=== PATIENT | male | born 1990 | race African-American/Black ===

== ENCOUNTER 2017-08-21 21:53 | Emergency (ER) | payer SELFPAY ==
[2017-08-21] MEDS ORDERED: METHYLPREDNISOLONE INJ 125 MG/2 ML SDV IV ONE (22:44)
[2017-08-21] MEDS ORDERED: NORMAL SALINE 1000 ML 1,000 ML IV PRN (22:45)
[2017-08-21] MEDS ORDERED: NORMAL SALINE 1000 ML 1,000 ML IV ONE (22:45)
[2017-08-21] MEDS ORDERED: ONDANSETRON HCL INJ/PF 4 MG/2 ML SDV IV ONE (22:46)
--- NOTE | 2017-08-21 22:47 | ER Document Report ---
ED General - General Chief Complaint: Nausea/Vomiting/Diarrhea Stated Complaint: VOMITING Time Seen by Provider: 08/21/17 22:40 Mode of Arrival: Ambulatory Information source: Patient Notes: 27 years old male presents today with fever chills sore throat nausea and vomiting 3 since this morning. And having chills on and off. Denies any headache neck pain neck stiffness. Denies any chest pain cough shortness of breath. Denies any abdominal pain dysuria frequency urgency. TRAVEL OUTSIDE OF THE [place] IN LAST 30 DAYS: No - Related Data Allergies/Adverse Reactions: No Known Allergies Allergy (Verified 08/21/17 21:55) Past Medical History - Social History Smoking Status: Smoker,Current Status Unk Family History: Reviewed & Not Pertinent - Immunizations Hx Diphtheria, Pertussis, Tetanus Vaccination: Yes Review of Systems - Review of Systems Notes: REVIEW OF SYSTEMS: CONSTITUTIONAL : As per history of complain EENT: Denies eye, ear, throat, or mouth pain or symptoms. Denies nasal or sinus congestion or discharge. Denies throat, tongue, or mouth swelling or difficulty swallowing. CARDIOVASCULAR: Denies chest pain. Denies palpitations or racing or irregular heart beat. Denies ankle edema. RESPIRATORY: Denies cough, cold, or chest congestion. Denies shortness of breath, difficulty breathing, or wheezing. GASTROINTESTINAL: Denies abdominal pain or distention. Denies blood in vomitus, stools, or per rectum. Denies black, tarry stools. Denies constipation. GENITOURINARY: Denies difficulty urinating, painful urination, burning, frequency, blood in urine, or discharge. MUSCULOSKELETAL: Denies back or neck pain or stiffness. Denies joint pain or swelling. SKIN: Denies rash, lesions or sores. HEMATOLOGIC : Denies easy bruising or bleeding. LYMPHATIC: Denies swollen, enlarged glands. NEUROLOGICAL: Denies confusion or altered mental status. Denies passing out or loss of consciousness. Denies dizziness or lightheadedness. Denies headache. Denies weakness or paralysis or loss of use of either side. Denies problems with gait or speech. Denies sensory loss, numbness, or tingling. Denies seizures. PSYCHIATRIC: Denies anxiety or stress. Denies depression, suicidal ideation, or homicidal ideation. ALL OTHER SYSTEMS REVIEWED AND NEGATIVE. Dictation was performed using [employer] recognition software PHYSICAL EXAMINATION: GENERAL: Well-appearing, well-nourished and in no acute distress. HEAD: Atraumatic, normocephalic. EYES: Pupils equal round and reactive to light, extraocular movements intact, sclera anicteric, conjunctiva are normal. ENT: Nares patent, oropharynx clear without exudates. Moist mucous membranes. NECK: Normal range of motion, supple without lymphadenopathy LUNGS: Breath sounds clear to auscultation bilaterally and equal. No wheezes rales or rhonchi. HEART: Regular rate and rhythm without murmurs ABDOMEN: Soft, nontender, nondistended abdomen. No guarding, no rebound. No masses appreciated. Musculoskeletal: Normal range of motion, no pitting or edema. No cyanosis. NEUROLOGICAL: Cranial nerves grossly intact. Normal speech, normal gait. Normal sensory, motor exams PSYCH: Normal mood, normal affect. SKIN: Warm, Dry, normal turgor, no rashes or lesions noted. Physical Exam - Vital signs Vitals: Temp Pulse Resp BP Pulse Ox 97.6 F 75 18 124/107 H 100 08/21/17 22:06 08/21/17 22:06 08/21/17 22:06 08/21/17 22:06 08/21/17 22:06 Course - Re-evaluation Re-evalutation: 08/22/17 01:48 CT report came back normal as well as chest x-ray x-ray. Most of the blood work came back normal except white count. This was explained to the parents and he is feeling well currently discharged home with a diagnosis of viral syndrome - Vital Signs Vital signs: Temp Pulse Resp BP Pulse Ox 98.0 F 77 18 126/55 H 99 08/22/17 02:10 08/22/17 02:10 08/22/17 02:10 08/22/17 02:10 08/22/17 02:10 - Laboratory Result Diagrams: 08/21/17 23:00 08/22/17 00:22 Laboratory results interpreted by me: 08/21/17 08/22/17 23:00 00:22 WBC 13.2 H Absolute Neutrophils 10.0 H Sodium 146.8 H Chloride 108 H Discharge - Discharge Clinical Impression: Viral syndrome, Dehydration Disposition: HOME, SELF-CARE Instructions: Fever ([facility]) Prescriptions: Promethazine HCl 25 mg PO TID PRN #30 tablet PRN Reason:
[2017-08-21 23:19] LABS: ABSOLUTE BASOPHILS # (AUTO) 0.1 10^3/uL (0.0-0.2); ABSOLUTE EOSINOPHILS # (AUTO) 0.4 10^3/uL (0.0-0.6); ABSOLUTE LYMPHOCYTES (AUTO) 1.8 10^3/uL (0.5-4.7); ABSOLUTE MONOCYTES (AUTO) 0.9 10^3/uL (0.1-1.4); BASOPHILS % (AUTO) 1.1 % (0-2); EOSINOPHILS % (AUTO) 2.8 % (0-6); HEMATOCRIT 46.5 % (37.9-51.0); HEMOGLOBIN 16.2 g/dL (13.5-17.0); HGB HCT DIFFERENCE 2.1; LYMPHOCYTES % (AUTO) 13.9 % (13-45); MEAN CORPUSCULAR HEMOGLOBIN 29.3 pg (27.0-33.4); MEAN CORPUSCULAR HGB CONC 34.8 g/dL (32.0-36.0); MEAN CORPUSCULAR VOLUME 84 fl (80-97); MONOCYTES % (AUTO) 6.5 % (3-13); RED BLOOD COUNT 5.53 10^6/uL (4.35-5.55); RED CELL DISTRIBUTION WIDTH 12.7 % (11.5-14.0); SEGMENTED NEUTROPHILS % (AUTO) 75.7 % (42-78); WHITE BLOOD COUNT 13.2 10^3/uL (4.0-10.5)
--- NOTE | 2017-08-22 00:24 | RADIOLOGY REPORT (SQ) ---
EXAM DESCRIPTION: CHEST SINGLE VIEW CLINICAL HISTORY: 27 years, Male, Shortness of breath COMPARISON: None. LIMITATIONS: None. FINDINGS: 0.6 cm likely calcified granuloma the right lower lung, otherwise clear parenchyma, normal cardiac silhouette, and intact bony thorax. IMPRESSION: No acute cardiopulmonary findings. 2011 [employer]- All Rights Reserved
[2017-08-22 00:51] LABS: ALANINE AMINOTRANSFERASE 41 U/L (21-72); ALBUMIN 4.5 g/dL (3.5-5.0); ALKALINE PHOSPHATASE 96 U/L (38-126); ANION GAP 15 (5-19); ASPARTATE AMINO TRANSFERASE 31 U/L (17-59); BILIRUBIN,DIRECT 0.2 mg/dL (0.0-0.4); BLOOD UREA NITROGEN 16 mg/dL (7-20); CALCIUM 9.8 mg/dL (8.4-10.2); CARBON DIOXIDE 24 mmol/L (22-30); CHLORIDE 108 mmol/L (98-107); CREATININE RESULT 1.14 mg/dL (0.52-1.25); GLUCOSE 82 mg/dL (75-110); POTASSIUM 4.6 mmol/L (3.6-5.0); SODIUM 146.8 mmol/L (137-145); TOTAL PROTEIN 7.7 g/dL (6.3-8.2)
--- NOTE | 2017-08-22 01:39 | RADIOLOGY REPORT (SQ) ---
EXAM DESCRIPTION: CT ABD/PELVIS WITH IV ONLY CLINICAL HISTORY: 27 years Male, Abdominal pain COMPARISON: None. TECHNIQUE: 83 mL IV contrast, coronal and sagittal reformat. This exam was performed according to our departmental dose-optimization program, which includes automated exposure control, adjustment of the mA and/or kV according to patient size and/or use of iterative reconstruction technique. FINDINGS: No acute findings. No significant free fluid. Normal CT appearance of the appendix and gallbladder. No bowel or renal obstruction. Inferior chest, liver, spleen, adrenals, pancreas, renal system, gastrointestinal tract, vasculature, lymphatics, pelvic organs, and musculoskeleton appear otherwise unremarkable. IMPRESSION: Normal contrast CT of the abdomen and pelvis.
[2017-08-22 02:20] VITALS: BP 126/55
== END 2017-08-22 02:15 | disposition home or self-care (01) ==
LOC: ER 21:53
DX: B34.9 Viral infection, unspecified (principal); E86.0 Dehydration; R11.2 Nausea with vomiting, unspecified; R19.7 Diarrhea, unspecified; R50.9 Fever, unspecified; F17.200 Nicotine dependence, unspecified, uncomplicated
CPT/HCPCS: 99284; 96361; 96374; 36415; 87070; 87880; 85025; 80053; 87804; 71010; 74177; J2405; J7030 ×2

== ENCOUNTER 2018-03-08 17:25 | Emergency (ER) | payer SELFPAY ==
[2018-03-08] MEDS ORDERED: METOCLOPRAMIDE HCL INJ/PF 10 MG/2 ML SDV IV ONE (18:16)
[2018-03-08] MEDS ORDERED: NORMAL SALINE 1000 ML 1,000 ML IV ONE (18:16)
[2018-03-08] MEDS ORDERED: DIPHENHYDRAMINE HCL 50 MG/ML VIAL IV ONE (18:16)
--- NOTE | 2018-03-08 18:17 | ER Document Report ---
ED Medical Screen (RME) - General Chief Complaint: Dizziness Stated Complaint: DIZZINESS/HEADACHE Time Seen by Provider: 03/08/18 18:08 Notes: Patient is a 27-year-old male who presents with worsening headaches over the past month now some presyncopal episodes. He also feels his heart racing during these times. Only having a posterior headache at this time. PE: NAD. 5/5 strength in all 4 extremities. Sensation intact. PERRL. RRR. I have greeted and performed a rapid initial assessment of this patient. A comprehensive ED assessment and evaluation of the patient, analysis of test results and completion of the medical decision making process will be conducted by additional ED providers. TRAVEL OUTSIDE OF THE [place] IN LAST 30 DAYS: No - Related Data Allergies/Adverse Reactions: No Known Allergies Allergy (Verified 03/08/18 18:08) Past Medical History - Social History Chew tobacco use (# tins/day): No Frequency of alcohol use: None Drug Abuse: None Renal/ Medical History: Denies: Hx Peritoneal Dialysis - Immunizations Hx Diphtheria, Pertussis, Tetanus Vaccination: Yes Physical Exam - Vital signs Vitals: Temp Pulse Resp BP Pulse Ox 97.9 F 64 18 141/80 H 98 03/08/18 17:42 03/08/18 17:42 03/08/18 17:42 03/08/18 17:42 03/08/18 17:42 Course - Vital Signs Vital signs: Temp Pulse Resp BP Pulse Ox 97.9 F 64 18 141/80 H 98 03/08/18 17:42 03/08/18 17:42 03/08/18 17:42 03/08/18 17:42 03/08/18 17:42
--- NOTE | 2018-03-08 18:34 | RADIOLOGY REPORT (SQ) ---
EXAM DESCRIPTION: CT HEAD WITHOUT COMPLETED DATE/TIME: 03/08/2018 6:22 pm REASON FOR STUDY: new headache COMPARISON: None. TECHNIQUE: Axial images acquired through the brain without intravenous contrast. Images reviewed wi th bone, brain and subdural windows. Additional sagittal and coronal reconstructions were generated. Images stored on PACS. All CT scanners at this facility use dose modulation, iterative reconstruction, and/or weight based d osing when appropriate to reduce radiation dose to as low as reasonably achievable (ALARA). [facility]: Dose Right [facility]: CareDose [facility]: Dose Right [facility]: Teradose 4D [facility]: [employer] RADIATION DOSE: CT Rad equipment meets quality standard of care and radiation dose reduction techniq ues were employed. CTDIvol: 53.2 mGy. DLP: 991 mGy-cm. mGy. LIMITATIONS: None. FINDINGS: VENTRICLES: Normal size and contour. CEREBRUM: No masses. No hemorrhage. No midline shift. No evidence for acute infarction. Normal gra y/white matter differentiation. No areas of low density in the white matter. CEREBELLUM: No masses. No hemorrhage. No alteration of density. No evidence for acute infarction. EXTRAAXIAL SPACES: No fluid collections. No masses. ORBITS AND GLOBE: No intra- or extraconal masses. Normal contour of globe without masses. CALVARIUM: No fracture. PARANASAL SINUSES: Small mucosal polyp or retention cyst is identified in the left maxillary antra SOFT TISSUES: No mass or hematoma. OTHER: No other significant finding. IMPRESSION: NORMAL BRAIN CT WITHOUT CONTRAST. EVIDENCE OF ACUTE STROKE: NO. COMMENT: Quality ID # [id number]: Final reports with documentation of one or more dose reduction techniques (e.g., Automated exposure control, adjustment of the mA and/or kV according to patient size, use of iterative reconstruction technique) TECHNICAL DOCUMENTATION: JOB ID: [id number] [employer]- All Rights Reserved Reading location - IP/workstation name: [email or web address]
[2018-03-08 20:08] LABS: ABSOLUTE BASOPHILS # (AUTO) 0.1 10^3/uL (0.0-0.2); ABSOLUTE EOSINOPHILS # (AUTO) 0.7 10^3/uL (0.0-0.6); ABSOLUTE LYMPHOCYTES (AUTO) 2.5 10^3/uL (0.5-4.7); ABSOLUTE MONOCYTES (AUTO) 0.5 10^3/uL (0.1-1.4); ABSOLUTE NEUT (AUTO) 3.4 10^3/uL (1.7-8.2); EOSINOPHILS % (AUTO) 9.1 % (0-6); LYMPHOCYTES % (AUTO) 35.1 % (13-45); MEAN CORPUSCULAR HGB CONC 34.8 g/dL (32.0-36.0); MEAN CORPUSCULAR VOLUME 86 fl (80-97); PLATELET COUNT 222 10^3/uL (150-450); SEGMENTED NEUTROPHILS % (AUTO) 46.8 % (42-78); TOTAL CELLS COUNTED % (AUTO) 100 %; WHITE BLOOD COUNT 7.2 10^3/uL (4.0-10.5)
[2018-03-08 20:28] LABS: ALANINE AMINOTRANSFERASE 22 U/L (21-72); ALBUMIN 4.6 g/dL (3.5-5.0); ALKALINE PHOSPHATASE 74 U/L (38-126); ANION GAP 13 (5-19); ASPARTATE AMINO TRANSFERASE 32 U/L (17-59); BILIRUBIN,DIRECT 0.4 mg/dL (0.0-0.4); BILIRUBIN,TOTAL 0.8 mg/dL (0.2-1.3); BLOOD UREA NITROGEN 15 mg/dL (7-20); CARBON DIOXIDE 28 mmol/L (22-30); CHLORIDE 102 mmol/L (98-107); GLUCOSE 81 mg/dL (75-110); SODIUM 142.7 mmol/L (137-145); TOTAL PROTEIN 8.5 g/dL (6.3-8.2)
--- NOTE | 2018-03-08 21:36 | EKG REPORT ---
SEVERITY:- ABNORMAL ECG - SINUS RHYTHM PROBABLE LEFT VENTRICULAR HYPERTROPHY ST ELEVATION SUGGESTS PERICARDITIS VERSUS EARLY REPOLARISATION CHANGES.cORRELATE CLINICALLY : Confirmed by: Bea Dias MD 08-Mar-2018 21:36:24
--- NOTE | 2018-03-08 23:45 | ER Document Report ---
ED General - General Chief Complaint: Dizziness Stated Complaint: DIZZINESS/HEADACHE Time Seen by Provider: 03/08/18 18:08 TRAVEL OUTSIDE OF THE [place] IN LAST 30 DAYS: No - HPI Patient complains to provider of: Headaches dizziness chest pain Notes: Patient coming in for evaluation of headaches dizziness chest pain. States intermittent for the last few weeks or more severe today. Patient states headache global patient states dizziness upon moving patient states he does drink plenty of fluids however he is under a lot of stress or so a lot does have multiple family commitments patient also complains about chest pain stabbing substernal epigastric. Patient denies any nausea vomiting fevers or chills. Patient resting currently in no obvious distress upon my evaluation. - Related Data Allergies/Adverse Reactions: No Known Allergies Allergy (Verified 03/08/18 18:08) Past Medical History - Social History Smoking Status: Never Smoker Chew tobacco use (# tins/day): No Frequency of alcohol use: None Drug Abuse: None Family History: Reviewed & Not Pertinent Patient has suicidal ideation: No Patient has homicidal ideation: No Renal/ Medical History: Denies: Hx Peritoneal Dialysis - Immunizations Hx Diphtheria, Pertussis, Tetanus Vaccination: Yes Review of Systems - Review of Systems Constitutional: Other - Dizziness headaches EENT: No symptoms reported Cardiovascular: Chest pain Respiratory: No symptoms reported Gastrointestinal: No symptoms reported Genitourinary: No symptoms reported Male Genitourinary: No symptoms reported Musculoskeletal: No symptoms reported Skin: No symptoms reported Hematologic/Lymphatic: No symptoms reported Neurological/Psychological: No symptoms reported -: Yes All other systems reviewed and negative Physical Exam - Vital signs Vitals: Temp Pulse Resp BP Pulse Ox 97.9 F 64 18 141/80 H 98 03/08/18 17:42 03/08/18 17:42 03/08/18 17:42 03/08/18 17:42 03/08/18 17:42 Interpretation: Normal - General General appearance: Appears well, Alert - HEENT Head: Normocephalic, Atraumatic Eyes: Normal Pupils: PERRL - Respiratory Respiratory status: No respiratory distress Chest status: Nontender Breath sounds: Normal Chest palpation: Normal - Cardiovascular Rhythm: Regular Heart sounds: Normal auscultation Murmur: No - Abdominal Inspection: Normal Distension: No distension Bowel sounds: Normal Tenderness: Nontender Organomegaly: No organomegaly - Back Back: Normal, Nontender - Extremities General upper extremity: Normal inspection, Nontender, Normal color, Normal ROM , Normal temperature General lower extremity: Normal inspection, Nontender, Normal color, Normal ROM , Normal temperature, Normal weight bearing. No: Tristan's sign - Neurological Neuro grossly intact: Yes Cognition: Normal Orientation: AAOx4 [place] Coma Scale Eye Opening: Spontaneous Ritu Coma Scale Verbal: Oriented Ritu Coma Scale Motor: Obeys Commands [place] Coma Scale Total: 15 Speech: Normal Motor strength normal: LUE, RUE, LLE, RLE Sensory: Normal - Psychological Associated symptoms: Normal affect, Normal mood - Skin Skin Temperature: Warm Skin Moisture: Dry Skin Color: Normal Course - Re-evaluation Re-evalutation: 03/09/18 00:55 The patient has atypical chest pain as the patient's chest pain is not suggestive of pulmonary embolus, cardiac ischemia, aortic dissection, or other serious etiology. Given the extremely low risk of these diagnoses further testing and evaluation for these possibilities does not appear to be indicated at this time. The patient has been instructed to return if the symptoms worsen or change in any way. EKG does show some slight signs of possible pericarditis however troponin and ESR negative. More likely is early repolarization. Patient resting comfortably after his headache cocktail. CT of the scan and laboratory results were reviewed with the patient. Patient will be discharged home - Vital Signs Vital signs: Temp Pulse Resp BP Pulse Ox 97.9 F 64 13 126/71 H 98 03/08/18 17:42 03/08/18 17:42 03/09/18 00:01 03/09/18 00:00 03/09/18 00:01 - Laboratory Result Diagrams: 03/08/18 19:58 03/08/18 19:58 Laboratory results interpreted by me: 03/08/18 03/08/18 19:58 19:58 Eosinophils % 9.1 H Absolute Eosinophils 0.7 H Total Protein 8.5 H Discharge - Discharge Clinical Impression: Dehydration, Chest pain of uncertain etiology Headache Qualifiers: Headache type: unspecified Headache chronicity pattern: unspecified pattern Intractability: not intractable Qualified Code(s): R51 - Headache Condition: Good Disposition: HOME, SELF-CARE Instructions: Chest Wall Pain ([facility]), Chest Pain of Unclear Cause ([facility]), Dehydration ([facility]), Headache ([facility]) Additional Instructions: Laboratory studies today did not show any signs of cardiac abnormality no signs of cardiac ischemia cardiac arrhythmia. Your CT of your head does not show any intracranial abnormality. Will likely your symptoms can be due to fatigue or dehydration. Will recommend drinking plenty of water. He can also take the medication as prescribed for your headache Compazine and Zofran together. We also recommend taking Tylenol Motrin for your pain. Return to ER if symptoms worsen. Prescriptions: Ondansetron HCl [Zofran 4 mg Tablet] 1 - 2 tab PO Q6 #30 tablet Prochlorperazine Maleate [Compazine] 5 mg PO Q6 #30 tablet Forms: Return to Work
[2018-03-09 00:25] VITALS: BP 126/71
== END 2018-03-09 00:29 | disposition home or self-care (01) ==
LOC: ER 17:25
DX: E86.0 Dehydration (principal); R42 Dizziness and giddiness; R51 Headache; R07.9 Chest pain, unspecified
CPT/HCPCS: 93005; 99284; 36415; 83690; 85025; 85652; 80053; 84484; 70450; 93010; J1200; J2765; J7030

== ENCOUNTER 2018-05-04 18:29 | Emergency (ER) | payer SELFPAY ==
--- NOTE | 2018-05-04 20:49 | RADIOLOGY REPORT (SQ) ---
EXAM DESCRIPTION: CHEST 2 VIEWS COMPLETED DATE/TIME: 05/04/2018 8:33 pm REASON FOR STUDY: Swollen lymph nodes COMPARISON: None. EXAM PARAMETERS: NUMBER OF VIEWS: two views TECHNIQUE: Digital Frontal and Lateral radiographic views of the chest acquired. RADIATION DOSE: NA LIMITATIONS: none FINDINGS: LUNGS AND PLEURA: No opacities, masses or pneumothorax. No pleural effusion. MEDIASTINUM AND HILAR STRUCTURES: No masses or contour abnormalities. HEART AND VASCULAR STRUCTURES: Heart normal size. No evidence for failure. BONES: No acute findings. HARDWARE: None in the chest. OTHER: No other significant finding. IMPRESSION: NO ACUTE RADIOGRAPHIC FINDING IN THE CHEST. TECHNICAL DOCUMENTATION: JOB ID: [id number] [employer]- All Rights Reserved Reading location - IP/workstation name: [email or web address]
--- NOTE | 2018-05-04 22:13 | ER Document Report ---
ED General - General Chief Complaint: Neck Swelling Stated Complaint: POSSIBLE ABSCESS, NECK PAIN Time Seen by Provider: 05/04/18 21:08 TRAVEL OUTSIDE OF THE [place] IN LAST 30 DAYS: No - HPI Notes: 28-year-old male presents with 3 areas of swelling on his left neck for the past 2 months. He believes it has gotten larger and is now causing shooting pains into his head causing headaches. He denies any fevers, chills, sore throat, difficulty swallowing, drooling. He does not feel ill. He has had no injuries. Initially thought it was due to sleeping wrong on the couch with his child. Denies any focal numbness or weakness. - Related Data Allergies/Adverse Reactions: No Known Allergies Allergy (Verified 05/04/18 18:31) Past Medical History - Social History Smoking Status: Never Smoker Frequency of alcohol use: None Drug Abuse: None Family History: Reviewed & Not Pertinent Patient has suicidal ideation: No Patient has homicidal ideation: No Renal/ Medical History: Denies: Hx Peritoneal Dialysis - Immunizations Hx Diphtheria, Pertussis, Tetanus Vaccination: Yes Review of Systems - Review of Systems Notes: Constitutional: Negative for fever. HENT: Negative for sore throat. Eyes: Negative for visual changes. Cardiovascular: Negative for chest pain. Respiratory: Negative for shortness of breath. Gastrointestinal: Negative for abdominal pain, vomiting or diarrhea. Genitourinary: Negative for dysuria. Musculoskeletal: Negative for back pain. Skin: Negative for rash. Neurological: Negative for headaches, weakness or numbness. 10 point ROS negative except as marked above and in HPI. Physical Exam - Vital signs Vitals: Resp Pulse Ox 12 100 05/04/18 21:09 05/04/18 21:09 - Notes Notes: PHYSICAL EXAMINATION: GENERAL: Well-appearing, well-nourished and in no acute distress. HEAD: Atraumatic, normocephalic. Patient has approximate 2 cm area of tenderness, mild swelling, and excoriated lesions to left lower scalp hairline. He states he remembers getting a little bit of pus out of this region a few days ago. He does not know where the lesion originated. Denies any insect bites. There is no fluctuance. EYES: Pupils equal round and reactive to light, extraocular movements intact, conjunctiva are normal. ENT: nares patent, oropharynx clear without exudates. Moist mucous membranes. NECK: Normal range of motion, supple. No neck asymmetry. No obvious swelling. No warmth, erythema, induration, crepitus, fluctuance. He has 4 tiny pea- sized palpable tender lymph nodes to his left posterior cervical chain. LUNGS: Breath sounds clear to auscultation bilaterally and equal. No wheezes rales or rhonchi. HEART: Regular rate and rhythm, no chest wall tenderness ABDOMEN: Soft, nontender, normoactive bowel sounds. No guarding, no rebound. No masses appreciated. EXTREMITIES: Normal range of motion, no pitting or edema. No cyanosis. NEUROLOGICAL: Cranial nerves grossly intact. Normal speech, normal gait. Normal sensory and motor exams. PSYCH: Normal mood, normal affect. SKIN: Warm, Dry, normal turgor, no rashes or lesions noted. Course - Re-evaluation Re-evalutation: 05/04/18 22:12 Exam consistent with very mild tender adenopathy. Labs ordered in triage. 05/04/18 23:37 Area of folliculitis found in left scalp immediately prior to discharge is likely causing the left-sided tender adenopathy. Labs unremarkable. Will treat with Bactrim. At this time will discharge with return precautions and follow-up recommendations. Verbal discharge instructions given a the bedside and opportunity for questions given. Medication warnings reviewed. Patient is in agreement with this plan and has verbalized understanding of return precautions and the need for primary care follow-up in the next 24-72 hours. Voice dictation software was used. Chart was reviewed, but errors may exist. - Vital Signs Vital signs: Temp Pulse Resp BP Pulse Ox 15 135/96 H 100 05/04/18 23:01 05/04/18 23:01 05/04/18 23:01 - Laboratory Result Diagrams: 05/04/18 21:35 05/04/18 21:35 Laboratory results interpreted by me: 05/04/18 21:35 Seg Neutrophils % 36.9 L Eosinophils % 8.2 H Discharge - Discharge Clinical Impression: Folliculitis, Cervical adenopathy Condition: Stable Disposition: HOME, SELF-CARE Instructions: Folliculitis ([facility]), Cervical Lymphadenitis ([facility]) Additional Instructions: Take all antibiotic. Return for any worsening or concerning symptoms. Take naproxen as needed for pain and swelling. Prescriptions: Naproxen 500 mg PO Q12 #20 tablet Sulfamethoxazole/Trimethoprim [Bactrim Ds Tablet] 1 each PO BID 7 Days tablet Forms: Elevated Blood Pressure Referrals: DONELL LOPEZ MD [ACTIVE STAFF] - Follow up in 1 week
[2018-05-04 22:29] LABS: ABSOLUTE EOSINOPHILS # (AUTO) 0.5 10^3/uL (0.0-0.6); ABSOLUTE LYMPHOCYTES (AUTO) 2.5 10^3/uL (0.5-4.7); ABSOLUTE MONOCYTES (AUTO) 0.6 10^3/uL (0.1-1.4); ABSOLUTE NEUT (AUTO) 2.1 10^3/uL (1.7-8.2); BASOPHILS % (AUTO) 0.7 % (0-2); EOSINOPHILS % (AUTO) 8.2 % (0-6); HEMATOCRIT 43.5 % (37.9-51.0); HEMOGLOBIN 15.3 g/dL (13.5-17.0); LYMPHOCYTES % (AUTO) 43.6 % (13-45); MEAN CORPUSCULAR HEMOGLOBIN 30.1 pg (27.0-33.4); MEAN CORPUSCULAR HGB CONC 35.2 g/dL (32.0-36.0); MEAN CORPUSCULAR VOLUME 86 fl (80-97); MONOCYTES % (AUTO) 10.6 % (3-13); PLATELET COUNT 207 10^3/uL (150-450); RED BLOOD COUNT 5.09 10^6/uL (4.35-5.55); RED CELL DISTRIBUTION WIDTH 12.9 % (11.5-14.0); SEGMENTED NEUTROPHILS % (AUTO) 36.9 % (42-78); TOTAL CELLS COUNTED % (AUTO) 100 %; WHITE BLOOD COUNT 5.7 10^3/uL (4.0-10.5)
[2018-05-04 22:42] LABS: ANION GAP 11 (5-19); BLOOD UREA NITROGEN 13 mg/dL (7-20); CARBON DIOXIDE 26 mmol/L (22-30); CHLORIDE 103 mmol/L (98-107); GLUCOSE 77 mg/dL (75-110); POTASSIUM 4.6 mmol/L (3.6-5.0); SODIUM 139.8 mmol/L (137-145)
[2018-05-04 23:57] VITALS: BP 136/84
== END 2018-05-04 23:58 | disposition home or self-care (01) ==
LOC: ER 18:29
DX: R59.0 Localized enlarged lymph nodes (principal); L73.8 Other specified follicular disorders; R51 Headache
CPT/HCPCS: 36415; 71046; 80048; 85025; 86060; 86308; 87070; 87880; 99284

== ENCOUNTER 2018-11-06 19:46 | Emergency (ER) | payer BC ==
[2018-11-07 01:41] LABS: ABSOLUTE EOSINOPHILS # (AUTO) 0.2 10^3/uL (0.0-0.6); ABSOLUTE LYMPHOCYTES (AUTO) 1.1 10^3/uL (0.5-4.7); ABSOLUTE MONOCYTES (AUTO) 0.7 10^3/uL (0.1-1.4); ABSOLUTE NEUT (AUTO) 3.3 10^3/uL (1.7-8.2); BASOPHILS % (AUTO) 0.6 % (0-2); HEMATOCRIT 40.8 % (37.9-51.0); HEMOGLOBIN 14.4 g/dL (13.5-17.0); LYMPHOCYTES % (AUTO) 21.3 % (13-45); MEAN CORPUSCULAR HEMOGLOBIN 29.8 pg (27.0-33.4); MEAN CORPUSCULAR HGB CONC 35.4 g/dL (32.0-36.0); MEAN CORPUSCULAR VOLUME 84 fl (80-97); MONOCYTES % (AUTO) 12.6 % (3-13); PLATELET COUNT 197 10^3/uL (150-450); RED BLOOD COUNT 4.85 10^6/uL (4.35-5.55); SEGMENTED NEUTROPHILS % (AUTO) 62.5 % (42-78); TOTAL CELLS COUNTED % (AUTO) 100 %; WHITE BLOOD COUNT 5.4 10^3/uL (4.0-10.5)
[2018-11-07] MEDS ORDERED: PROCHLORPERAZINE EDISYLATE INJ 10 MG/2 ML VIAL IV ONE (01:44)
[2018-11-07] MEDS ORDERED: KETOROLAC TROMETHAMINE INJ/PF 30 MG/1 ML SDV IV ONE (01:45)
[2018-11-07] MEDS ORDERED: DIPHENHYDRAMINE HCL 50 MG/ML VIAL IV ONE (01:45)
[2018-11-07 01:59] LABS: ALANINE AMINOTRANSFERASE 25 U/L (21-72); ALBUMIN 4.4 g/dL (3.5-5.0); ALKALINE PHOSPHATASE 89 U/L (38-126); ANION GAP 8 (5-19); ASPARTATE AMINO TRANSFERASE 30 U/L (17-59); BILIRUBIN,DIRECT 0.1 mg/dL (0.0-0.4); BILIRUBIN,TOTAL 1.9 mg/dL (0.2-1.3); BLOOD UREA NITROGEN 15 mg/dL (7-20); CALCIUM 9.5 mg/dL (8.4-10.2); CARBON DIOXIDE 28 mmol/L (22-30); CHLORIDE 99 mmol/L (98-107); GLUCOSE 89 mg/dL (75-110); LIPASE 83.9 U/L (23-300); POTASSIUM 3.5 mmol/L (3.6-5.0); SODIUM 135.2 mmol/L (137-145); TOTAL PROTEIN 8.2 g/dL (6.3-8.2)
[2018-11-07] MEDS ORDERED: RINGERS SOLUTION,LACTATED 1,000 ML IV ONE (02:21)
--- NOTE | 2018-11-07 03:28 | ER Document Report ---
ED General - General Chief Complaint: Abdominal Pain Stated Complaint: NAUSEA,VOMITING,HEADACHE Time Seen by Provider: 11/07/18 00:00 Notes: Patient is a 28-year-old male suffers from migraines presents to the emergency department for generalized headache, vomits x6 and subjective fever. Patient's denying any diarrhea, dysuria, abdominal pain. Patient states he does have a history of migraines but is not being treated with any medications. Patient is denying any nuchal rigidity or neck pain. Past medical history: Migraines Medications: None Allergies: None TRAVEL OUTSIDE OF THE [place] IN LAST 30 DAYS: No - Related Data Allergies/Adverse Reactions: No Known Allergies Allergy (Verified 05/04/18 18:31) Past Medical History - General Information source: Patient - Social History Smoking Status: Never Smoker Chew tobacco use (# tins/day): No Frequency of alcohol use: None Drug Abuse: None Family History: Reviewed & Not Pertinent Patient has suicidal ideation: No Patient has homicidal ideation: No Renal/ Medical History: Denies: Hx Peritoneal Dialysis - Immunizations Hx Diphtheria, Pertussis, Tetanus Vaccination: Yes Review of Systems - Review of Systems Constitutional: See HPI EENT: No symptoms reported Cardiovascular: No symptoms reported Respiratory: No symptoms reported Gastrointestinal: See HPI Genitourinary: No symptoms reported Male Genitourinary: No symptoms reported Musculoskeletal: No symptoms reported Skin: No symptoms reported - Doing Hematologic/Lymphatic: No symptoms reported Neurological/Psychological: No symptoms reported - Get off my back Physical Exam - Vital signs Vitals: Temp Pulse Resp BP Pulse Ox 99.0 F 80 14 145/80 H 98 11/06/18 19:59 11/06/18 19:59 11/06/18 19:59 11/06/18 19:59 11/06/18 19:59 - Notes Notes: GENERAL: Alert, interacts well. No acute distress. HEAD: Normocephalic, atraumatic. EYES: Pupils equal, round, and reactive to light. Extraocular movements intact. No photophobia noted ENT: Oral mucosa moist, tongue midline. NECK: Full range of motion. Supple. Trachea midline. LUNGS: Clear to auscultation bilaterally, no wheezes, rales, or rhonchi. No respiratory distress. HEART: Regular rate and rhythm. No murmur ABDOMEN: Soft, Non-distended. Bowel sounds present in all 4 quadrants. No McBurney's point tenderness, no Du sign noted. Minor pain in the left upper quadrant noted upon deep palpation. EXTREMITIES: Moves all 4 extremities spontaneously. No edema, normal radial and dorsalis pedis pulses bilaterally. No cyanosis. BACK: no cervical, thoracic, lumbar midline tenderness. No saddle anesthesia, normal distal neurovascular exam. NEUROLOGICAL: Alert and oriented x3. Normal speech. cranial nerves II through XII grossly intact PSYCH: Normal affect, normal mood. SKIN: Warm, dry, normal turgor. No rashes or lesions noted. Course - Re-evaluation Re-evalutation: Patient's labs show no signs of leukocytosis, no signs of anemia, Patient's sodium was noted to be 135.2 with a potassium of 3.5. Patient was treated in the emergency department for his generalized migraine with fluid resuscitation. Patient states he feels a lot better and upon my reassessment patient was sleeping in no apparent distress. Patient has been afebrile the entire visit to the emergency department, vitals stable, stable for discharge. - Vital Signs Vital signs: Temp Pulse Resp BP Pulse Ox 99.0 F 80 14 145/80 H 98 11/06/18 19:59 11/06/18 19:59 11/06/18 19:59 11/06/18 19:59 11/06/18 19:59 - Laboratory Result Diagrams: 11/07/18 01:26 11/07/18 01:26 Laboratory results interpreted by me: 11/07/18 01:26 Sodium 135.2 L Potassium 3.5 L Total Bilirubin 1.9 H Discharge - Discharge Clinical Impression: Migraine Qualifiers: Migraine type: unspecified Status migrainosus presence: without status migr ainosus Intractability: not intractable Qualified Code(s): G43.909 - Migraine, unspecified, not intractable, without status migrainosus Condition: Stable Disposition: HOME, SELF-CARE Instructions: Migraine Headache ([facility]) Additional Instructions: You have been seen and treated in the emergency department for a migraine headache. Please make sure he stay well-hydrated and follow-up with your primary care provider in the next 24-48 hours. Please also return to the emergency room should you have any other concerning symptoms. Prescriptions: Ondansetron [Zofran Odt 4 mg Tablet] 1 - 2 tab PO Q6 #15 tab.rapdis Forms: Return to Work
[2018-11-07 04:01] VITALS: BP 150/78
== END 2018-11-07 03:40 | disposition home or self-care (01) ==
LOC: ER 19:46
DX: G43.909 Migraine, unspecified, not intractable, without status migrainosus (principal); R50.9 Fever, unspecified; R11.10 Vomiting, unspecified
CPT/HCPCS: 99284; 96374; 96375; 36415; 83690; 85025; 80053; J1200; J1885; J0780; J7120

== ENCOUNTER → 2019-05-09 | Outpatient (CLI) | payer BC ==
--- NOTE | 2019-05-09 08:47 | RADIOLOGY REPORT (SQ) ---
EXAM DESCRIPTION: CT HEAD WITHOUT COMPLETED DATE/TIME: 05/09/2019 7:59 am REASON FOR STUDY: HEADACHE (R51) R51 HEADACHE COMPARISON: None. TECHNIQUE: Axial images acquired through the brain without intravenous contrast. Images reviewed wi th bone, brain and subdural windows. Additional sagittal and coronal reconstructions were generated. Images stored on PACS. All CT scanners at this facility use dose modulation, iterative reconstruction, and/or weight based d osing when appropriate to reduce radiation dose to as low as reasonably achievable (ALARA). [facility]: Dose Right [facility]: CareDose [facility]: Dose Right [facility]: Teradose 4D [facility]: [employer] RADIATION DOSE: CT Rad equipment meets quality standard of care and radiation dose reduction techniq ues were employed. CTDIvol: 48.6 mGy. DLP: 905 mGy-cm. mGy. LIMITATIONS: None. FINDINGS: There is no acute intracranial hemorrhage, vascular territorial infarct, extra-axial fluid collection, mass effect, midline shift. There is no effacement of cerebral sulci or basal subarachn oid cisterns. The restrepo-white matter differentiation is preserved. The caliber of the ventricles is concordant with the degree of sulcation ; there is no ventriculomegaly. There is a mucous retention cyst within the left maxillary sinus; the other paranasal sinuses are nicolas ar and there is no paranasal sinus air-fluid level or mucoperiosteal thickening. There is an isolated chronic fracture of the medial wall of the right orbit. The globes, extraocular muscles, and optic nerve sheath complexes are symmetric and normal in appearance. There is no acute fracture of the calvarium or maxillofacial structures. IMPRESSION: No acute intracranial abnormality. EVIDENCE OF ACUTE STROKE: NO. COMMENT: Quality ID # [id number]: Final reports with documentation of one or more dose reduction techniques (e.g., Automated exposure control, adjustment of the mA and/or kV according to patient size, use of iterative reconstruction technique) TECHNICAL DOCUMENTATION: JOB ID: [id number] [employer]- All Rights Reserved Reading location - IP/workstation name: [email or web address]-
== END ==
LOC: RAD 07:44
PROVIDERS: ATTEND Family Medicine
DX: R51 Headache (principal)
CPT/HCPCS: 70450

== ENCOUNTER → 2019-09-10 | Outpatient (CLI) | payer BC ==
--- NOTE | 2019-09-10 12:06 | RADIOLOGY REPORT (SQ) ---
EXAM DESCRIPTION: U/S EXTREMITY NONVASCULAR LTD COMPLETED DATE/TIME: 09/10/2019 10:11 am REASON FOR STUDY: RIGHT ACHILLES TENDINITIS M76.71 PERONEAL TENDINITIS, RIGHT LEG COMPARISON: None. TECHNIQUE: Dynamic and static grayscale images acquired of the localized site of clinical concern an d recorded on PACS. Additional selected color Doppler and spectral images recorded. SITE OF CONCERN: Right ankle. Patient is scanned in the anterior right ankle near the region of pain as well as in the right Achilles with limited left comparison. LIMITATIONS: None. FINDINGS: SKIN AND SUBCUTANEOUS TISSUES: No masses. No fluid collections. No edema. No foreign bridget s. DEEP SOFT TISSUES/MUSCLES: No masses. No fluid collections. No edema. VASCULAR: No increased or decreased vascularity. No occlusions. OTHER: No other significant finding. IMPRESSION: No gross pathology. No mass or tendon tear. However, MRI of the ankle may be warranted to better assess for more subtle changes and to evaluate all of the tendons and ligaments. TECHNICAL DOCUMENTATION: JOB ID: [id number] [employer]- All Rights Reserved Reading location - IP/workstation name: [email or web address]
== END ==
LOC: RAD 09:30
PROVIDERS: ATTEND Family Medicine
DX: M76.71 Peroneal tendinitis, right leg (principal)
CPT/HCPCS: 76882

== ENCOUNTER → 2019-10-29 | Outpatient (CLI) | payer BC ==
--- NOTE | 2019-10-29 09:25 | RADIOLOGY REPORT (SQ) ---
EXAM DESCRIPTION: ANKLE RIGHT AP/LATERAL COMPLETED DATE/TIME: 10/29/2019 8:53 am REASON FOR STUDY: ACHILLES TENDINITIS, RIGHT LEG M76.61 ACHILLES TENDINITIS, RIGHT LEG COMPARISON: None. NUMBER OF VIEWS: Two views. TECHNIQUE: AP and lateral radiographic images acquired of the right ankle. LIMITATIONS: None. FINDINGS: MINERALIZATION: Normal. BONES: No acute fracture or dislocation. The ankle mortise and talar dome are intact. JOINTS: No effusions. SOFT TISSUES: No soft tissue swelling or radiopaque foreign body. OTHER: Os trigonum. IMPRESSION: No acute osseous abnormality of the right ankle. TECHNICAL DOCUMENTATION: JOB ID: [id number] [employer]- All Rights Reserved Reading location - IP/workstation name: [email or web address]
== END ==
LOC: OD 08:39
PROVIDERS: ATTEND Family Medicine
DX: M76.61 Achilles tendinitis, right leg (principal)

== ENCOUNTER 2020-09-26 05:28 | Emergency (ER) | payer BC ==
--- NOTE | 2020-09-26 06:51 | RADIOLOGY REPORT (SQ) ---
CHEST X-RAY 1 VIEW on 09/26/2020 at 6:15 AM CLINICAL INDICATION: Chest pain COMPARISON: 05/04/2018 FINDINGS: A few wires are noted projecting over the chest. There is linear density projecting over the left upper chest that may be artifact or otherwise is likely outside the patient. The lungs are clear. Cardiac, hilar and mediastinal contours are within normal limits. Pulmonary vascularity is within normal limits. IMPRESSION: No acute disease.
[2020-09-26] MEDS ORDERED: DEXTROSE 5%-LACTATED RINGERS 1,000 ML IV ONE (06:57)
[2020-09-26] MEDS ORDERED: ACETAMINOPHEN 1,000 MG/100 ML RTUPB IV ONE (07:20)
[2020-09-26 07:41] LABS: HEMOGLOBIN 14.5 g/dL (13.5-17.0); MEAN CORPUSCULAR HEMOGLOBIN 29.2 pg (27.0-33.4); MEAN CORPUSCULAR HGB CONC 34.6 g/dL (32.0-36.0); MEAN CORPUSCULAR VOLUME 84 fl (80-97); PLATELET COUNT 192 10^3/uL (150-450); RED BLOOD COUNT 4.98 10^6/uL (4.35-5.55); RED CELL DISTRIBUTION WIDTH 12.5 % (11.5-14.0); WHITE BLOOD COUNT 7.7 10^3/uL (4.0-10.5)
[2020-09-26 07:54] LABS: ALBUMIN 4.4 g/dL (3.5-5.0); ALKALINE PHOSPHATASE 87 U/L (38-126); ANION GAP 13 (5-19); ASPARTATE AMINO TRANSFERASE 28 U/L (17-59); BILIRUBIN,TOTAL 1.3 mg/dL (0.2-1.3); BLOOD UREA NITROGEN 15 mg/dL (7-20); CARBON DIOXIDE 24 mmol/L (22-30); CHLORIDE 99 mmol/L (98-107); CREATINE KINASE 157 U/L (55-170); GLUCOSE 105 mg/dL (75-110); POTASSIUM 3.9 mmol/L (3.6-5.0)
[2020-09-26 07:56] LABS: ABSOLUTE LYMPHOCYTES# (MANUAL) 0.1 10^3/uL (0.5-4.7); ABSOLUTE MONOCYTES # (MANUAL) 0.5 10^3/uL (0.1-1.4); BAND NEUTROPHILS % (MANUAL) 1 % (3-5); BASOPHILS % (MANUAL) 0 % (0-2); EOSINOPHILS % (MANUAL) 0 % (0-6); LYMPHOCYTES % (MANUAL) 1 % (13-45); MONOCYTES % (MANUAL) 7 % (3-13); SEGMENTED NEUTROPHILS % (MAN) 91 % (42-78); TOTAL CELLS COUNTED 100
[2020-09-26 07:57] LABS: PLATELET COMMENT ADEQUATE; WBC MORPHOLOGY COMMENT NN
[2020-09-26 08:09] LABS: CREATINE KINASE MB < 0.22 ng/mL (<4.55); TROPONIN I < 0.012 ng/mL
[2020-09-26] MEDS ORDERED: NORMAL SALINE 1000 ML 1,000 ML IV ONE (08:46)
--- NOTE | 2020-09-26 09:51 | EKG REPORT ---
SEVERITY:- ABNORMAL ECG - SINUS RHYTHM ANTERIOR Q WAVES, POSSIBLY DUE TO LVH : Confirmed by: Vimal Boateng MD 26-Sep-2020 09:51:03
[2020-09-26 10:32] LABS: APPEARANCE,URINE CLEAR; BILIRUBIN,URINE NEGATIVE (NEGATIVE); COLOR,URINE YELLOW; GLUCOSE, URINE NEGATIVE (NEGATIVE); KETONES,URINE NEGATIVE (NEGATIVE); LEUKOCYTE ESTERASE,URINE NEGATIVE (NEGATIVE); NITRITE,URINE NEGATIVE (NEGATIVE); PROTEIN,URINE NEGATIVE (NEGATIVE); URINE SPECIFIC GRAVITY 1.023; UROBILINOGEN,URINE NEGATIVE mg/dL (<2.0)
--- NOTE | 2020-09-26 11:30 | ER Document Report ---
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 Patient states his "lungs feel tight" and has difficulty breathing. Patient reports chills, abdominal cramps, and green V/D. Denies any fever, cough, GI history, or surgical history. Patient states he received his 2nd covid vaccination yesterday morning and experienced chills with his first vaccination. TRAVEL OUTSIDE OF THE [place] IN LAST 30 DAYS: No - Related Data Allergies/Adverse Reactions: No Known Allergies Allergy (Verified 05/04/18 18:31) Past Medical History - General Information source: Patient - Social History Smoking Status: Never Smoker Cigarette use (# per day): No Lives with: Family Family History: Reviewed & Not Pertinent - Past Medical History Cardiac Medical History: Reports: Hx Hypertension Renal/ Medical History: Denies: Hx Peritoneal Dialysis GI Medical History: Reports: None Past Surgical History: Reports: None - Immunizations Hx Diphtheria, Pertussis, Tetanus Vaccination: Yes Review of Systems - Review of Systems Constitutional: See HPI, Chills. denies: Fever EENT: No symptoms reported Cardiovascular: No symptoms reported Respiratory: See HPI, Short of breath. denies: Cough Gastrointestinal: See HPI, Diarrhea, Nausea, Vomiting, Other - abdominal cramps Genitourinary: No symptoms reported Male Genitourinary: No symptoms reported Musculoskeletal: No symptoms reported Skin: No symptoms reported Hematologic/Lymphatic: No symptoms reported Neurological/Psychological: No symptoms reported -: Yes All other systems reviewed and negative Physical Exam - Vital signs Vitals: Temp Pulse Resp BP Pulse Ox 97.8 F 86 25 H 137/69 H 100 09/26/20 05:42 09/26/20 05:42 09/26/20 05:42 09/26/20 05:42 09/26/20 05:42 - General General appearance: Alert - HEENT Head: Normocephalic, Atraumatic Eyes: Normal Pupils: PERRL Mucous membranes: Dry - Respiratory Respiratory status: No respiratory distress Chest status: Nontender Breath sounds: Normal Chest palpation: Normal Notes: Saturating 100% on room air. - Cardiovascular Rhythm: Regular Heart sounds: Normal auscultation, S1 appreciated, S2 appreciated Murmur: No - Abdominal Inspection: Other - soft Distension: No distension Bowel sounds: Normal Tenderness: Nontender. No: Rebound Notes: Non-surgical abdomen. - Extremities General upper extremity: Normal inspection, Normal ROM General lower extremity: Normal inspection, Normal ROM. No: Tender, Edema, Tristan's sign - Neurological Neuro grossly intact: Yes Cognition: Normal Orientation: AAOx4 Ritu Coma Scale Eye Opening: Spontaneous Ritu Coma Scale Verbal: Oriented Bells Coma Scale Motor: Obeys Commands Bells Coma Scale Total: 15 Speech: Normal Sensory: Normal - Psychological Associated symptoms: Normal affect, Normal mood - Skin Skin Temperature: Warm Skin Moisture: Dry Skin Color: Normal Course - Re-evaluation Re-evalutation: 09/26/20 11:23 Patient resting comfortably at this time. Patient has received IV fluids and IV Tylenol. Patient says his cramps and abdominal discomfort has resolved. - Vital Signs Vital signs: Temp Pulse Resp BP Pulse Ox 97.8 F 86 25 H 137/69 H 100 09/26/20 05:42 09/26/20 05:42 09/26/20 05:42 09/26/20 05:42 09/26/20 05:42 09/26/20 11:23 - Laboratory Results Result Diagrams: 09/26/20 07:23 09/26/20 07:23 Laboratory Results Interpreted: 09/26/20 09/26/20 09/26/20 07:23 07:23 10:19 Seg Neuts % (Manual) 91 H Band Neutrophils % 1 L Lymphocytes % (Manual) 1 L Abs Lymphs (Manual) 0.1 L Sodium 136.0 L Creatinine 1.32 H Urine Ascorbic Acid 20 H Labs- Entire Visit 09/26/20 09/26/20 09/26/20 07:23 07:23 07:23 WBC 7.7 RBC 4.98 Hgb 14.5 Hct 42.0 MCV 84 MCH 29.2 MCHC 34.6 RDW 12.5 Plt Count 192 Lymph % (Auto) Not Reportable [place] % (Auto) Not Reportable Eos % (Auto) Not Reportable Baso % (Auto) Not Reportable Absolute Neuts (auto) Not Reportable Absolute Lymphs (auto) Not Reportable Absolute Monos (auto) Not Reportable Absolute Eos (auto) Not Reportable Absolute Basos (auto) Not Reportable Total Counted 100 Seg Neutrophils % Not Reportable Seg Neuts % (Manual) 91 H Band Neutrophils % 1 L Lymphocytes % (Manual) 1 L Monocytes % (Manual) 7 Eosinophils % (Manual) 0 Basophils % (Manual) 0 Abs Neuts (Manual) 7.1 Abs Lymphs (Manual) 0.1 L Abs Monocytes (Manual) 0.5 Absolute Eos (Manual) 0.0 Abs Basophils (Manual) 0.0 WBC Morphology Comment NN Platelet Comment ADEQUATE D-Dimer Sodium 136.0 L Potassium 3.9 Chloride 99 Carbon Dioxide 24 Anion Gap 13 BUN 15 Creatinine 1.32 H Est GFR ( Amer) > 60 Est GFR (MDRD) Non-Af > 60 Glucose 105 Lactic Acid Calcium 10.0 Total Bilirubin 1.3 Direct Bilirubin 0.0 Neonat Total Bilirubin Not Reportable Neonat Direct Bilirubin Not Reportable Neonat Indirect Bili Not Reportable AST 28 ALT 19 Alkaline Phosphatase 87 Creatine Kinase 157 CK-MB (CK-2) < 0.22 Troponin I < 0.012 NT-Pro-B Natriuret Pep Total Protein 8.0 Albumin 4.4 Lipase Urine Color Urine Appearance Urine pH Ur Specific [place] Urine Protein Urine Glucose (UA) Urine Ketones Urine Blood Urine Nitrite Urine Bilirubin Urine Urobilinogen Ur Leukocyte Esterase Urine WBC (Auto) Squamous Epi Cells Auto Urine Mucus (Auto) Urine Ascorbic Acid 09/26/20 09/26/20 09/26/20 07:23 07:23 07:23 WBC RBC Hgb Hct MCV MCH MCHC RDW Plt Count Lymph % (Auto) [place] % (Auto) Eos % (Auto) Baso % (Auto) Absolute Neuts (auto) Absolute Lymphs (auto) Absolute Monos (auto) Absolute Eos (auto) Absolute Basos (auto) Total Counted Seg Neutrophils % Seg Neuts % (Manual) Band Neutrophils % Lymphocytes % (Manual) Monocytes % (Manual) Eosinophils % (Manual) Basophils % (Manual) Abs Neuts (Manual) Abs Lymphs (Manual) Abs Monocytes (Manual) Absolute Eos (Manual) Abs Basophils (Manual) WBC Morphology Comment Platelet Comment D-Dimer 0.29 Sodium Potassium Chloride Carbon Dioxide Anion Gap BUN Creatinine Est GFR ( Amer) Est GFR (MDRD) Non-Af Glucose Lactic Acid Calcium Total Bilirubin Direct Bilirubin Neonat Total Bilirubin Neonat Direct Bilirubin Neonat Indirect Bili AST ALT Alkaline Phosphatase Creatine Kinase CK-MB (CK-2) Troponin I Cancelled NT-Pro-B Natriuret Pep Total Protein Albumin Lipase 83.7 Urine Color Urine Appearance Urine pH Ur Specific [place] Urine Protein Urine Glucose (UA) Urine Ketones Urine Blood Urine Nitrite Urine Bilirubin Urine Urobilinogen Ur Leukocyte Esterase Urine WBC (Auto) Squamous Epi Cells Auto Urine Mucus (Auto) Urine Ascorbic Acid 09/26/20 09/26/20 09/26/20 07:23 09:57 09:57 WBC RBC Hgb Hct MCV MCH MCHC RDW Plt Count Lymph % (Auto) [place] % (Auto) Eos % (Auto) Baso % (Auto) Absolute Neuts (auto) Absolute Lymphs (auto) Absolute Monos (auto) Absolute Eos (auto) Absolute Basos (auto) Total Counted Seg Neutrophils % Seg Neuts % (Manual) Band Neutrophils % Lymphocytes % (Manual) Monocytes % (Manual) Eosinophils % (Manual) Basophils % (Manual) Abs Neuts (Manual) Abs Lymphs (Manual) Abs Monocytes (Manual) Absolute Eos (Manual) Abs Basophils (Manual) WBC Morphology Comment Platelet Comment D-Dimer Sodium Potassium Chloride Carbon Dioxide Anion Gap BUN Creatinine Est GFR ( Amer) Est GFR (MDRD) Non-Af Glucose Lactic Acid 1.7 Calcium Total Bilirubin Direct Bilirubin Neonat Total Bilirubin Neonat Direct Bilirubin Neonat Indirect Bili AST ALT Alkaline Phosphatase Creatine Kinase CK-MB (CK-2) Troponin I < 0.012 NT-Pro-B Natriuret Pep 28 Total Protein Albumin Lipase Urine Color Urine Appearance Urine pH Ur Specific [place] Urine Protein Urine Glucose (UA) Urine Ketones Urine Blood Urine Nitrite Urine Bilirubin Urine Urobilinogen Ur Leukocyte Esterase Urine WBC (Auto) Squamous Epi Cells Auto Urine Mucus (Auto) Urine Ascorbic Acid 09/26/20 10:19 WBC RBC Hgb Hct MCV MCH MCHC RDW Plt Count Lymph % (Auto) [place] % (Auto) Eos % (Auto) Baso % (Auto) Absolute Neuts (auto) Absolute Lymphs (auto) Absolute Monos (auto) Absolute Eos (auto) Absolute Basos (auto) Total Counted Seg Neutrophils % Seg Neuts % (Manual) Band Neutrophils % Lymphocytes % (Manual) Monocytes % (Manual) Eosinophils % (Manual) Basophils % (Manual) Abs Neuts (Manual) Abs Lymphs (Manual) Abs Monocytes (Manual) Absolute Eos (Manual) Abs Basophils (Manual) WBC Morphology Comment Platelet Comment D-Dimer Sodium Potassium Chloride Carbon Dioxide Anion Gap BUN Creatinine Est GFR ( Amer) Est GFR (MDRD) Non-Af Glucose Lactic Acid Calcium Total Bilirubin Direct Bilirubin Neonat Total Bilirubin Neonat Direct Bilirubin Neonat Indirect Bili AST ALT Alkaline Phosphatase Creatine Kinase CK-MB (CK-2) Troponin I NT-Pro-B Natriuret Pep Total Protein Albumin Lipase Urine Color YELLOW Urine Appearance CLEAR Urine pH 8.0 Ur Specific [place] 1.023 Urine Protein NEGATIVE Urine Glucose (UA) NEGATIVE Urine Ketones NEGATIVE Urine Blood NEGATIVE Urine Nitrite NEGATIVE Urine Bilirubin NEGATIVE Urine Urobilinogen NEGATIVE Ur Leukocyte Esterase NEGATIVE Urine WBC (Auto) 1 Squamous Epi Cells Auto <1 Urine Mucus (Auto) RARE Urine Ascorbic Acid 20 H Critical Laboratory Results Reviewed: No Critical Results - Radiology Results Radiology Results Interpreted: 09/26/20 11:24 Chest X-Ray 09/26/20 00:00 IMPRESSION: No acute disease. Chest x-ray shows no acute process. No infiltrate. Critical Radiology Results Reviewed: No Critical Results - EKG Interpretation by Me Additional EKG results interpreted by me: 09/26/20 11:26 Twelve-lead EKG shows a normal sinus rhythm rate of 99 normal axis. Noted anterior Q waves consistent with LVH. Patient has abnormal T wave changes, consider ischemia in diffuse chest leads. Patient has normal MT interval normal QRS QRS interval and normal QT intervals. No evidence for an acute STEMI. Discharge - Discharge Clinical Impression: ADVERSE REACTION VACCINATION, Nausea, Muscle cramps, Dehydration, Diarrhea after vaccination Condition: Stable Disposition: HOME, SELF-CARE Instructions: Diarrhea, Nonspecific ([facility]), Antinausea Medication ([facility]), Intravenous (IV) Fluids ([facility]), Vomiting ([facility]) Prescriptions: Ibuprofen [Ibu] 800 mg PO TID PRN 7 Days #21 tablet PRN Reason: prn pain/swelling/fever Ondansetron [Zofran Odt 4 mg Tablet] 1 - 2 tab PO Q4H PRN #15 tab.rapdis PRN Reason: For Nausea/Vomiting Referrals: VIET MAJANO MD [Primary Care Provider] - Follow up as needed I personally performed the services described in the documentation, reviewed and edited the documentation which was dictated to the scribe in my presence, and it accurately records my words and actions.
[2020-09-26 12:33] VITALS: BP 121/60
== END 2020-09-26 12:33 | disposition home or self-care (01) ==
LOC: ER 05:28
DX: K52.1 Toxic gastroenteritis and colitis (principal); T50.Z95A Adverse effect of other vaccines and biological substances, initial encounter; E86.0 Dehydration; R11.2 Nausea with vomiting, unspecified; R07.89 Other chest pain; R25.2 Cramp and spasm; I10 Essential (primary) hypertension
CPT/HCPCS: 93005; 99285; 96361; 96365; 36415; 82553; 82550; 83605; 83690; 85025; 80053; 81001; 84484; 85379; 83880; 71045; 93010; J7121; J7030; J0131